=== PATIENT | female | born 1995 | race Two or more races ===

== ENCOUNTER 2018-07-02 08:38 | Outpatient (CLI) | payer OTHER | END 2018-07-02 08:46 | disposition home or self-care (01) | LOC: SONOGRAMA 08:38 | DX: E04.8 Other specified nontoxic goiter (principal) ==

== ENCOUNTER 2019-03-10 05:29 | Emergency (ER) | payer OTHER ==
[~2019-03-10] VITALS: Ht 175.3 cm; Wt 72.6 kg
[2019-03-10] MEDS ORDERED: CIPRO (05:42)
[2019-03-10] MEDS ORDERED: TRI-SPRINTEC T1 EACH (05:43)
[2019-03-10] MEDS ORDERED: FAMOTIDINE (05:43)
== END 2019-03-10 13:40 | disposition home or self-care (01) ==
LOC: ER 05:29
DX: N83.291 Other ovarian cyst, right side (principal)

== ENCOUNTER 2020-12-07 08:50 | Outpatient (CLI) | payer OTHER ==
[~2020-12-07 08:50] MED LIST: CIPRO; FAMOTIDINE; TRI-SPRINTEC T1 EACH
== END 2020-12-07 09:01 | disposition home or self-care (01) ==
LOC: SONOGRAMA 08:50
PROVIDERS: ATTEND Pathology Anatomic Pathology & Clinical Pathology
DX: E04.1 Nontoxic single thyroid nodule (principal)

== ENCOUNTER 2021-02-15 11:49 | Outpatient (CLI) | payer OTHER | END 2021-02-15 12:18 | disposition home or self-care (01) | LOC: SONOGRAMA 11:49 | PROVIDERS: ATTEND Pathology Anatomic Pathology & Clinical Pathology | DX: E04.2 Nontoxic multinodular goiter (principal) ==

== ENCOUNTER 2022-06-07 09:23 | Outpatient (CLI) | payer OTHER | END 2022-06-07 09:27 | disposition home or self-care (01) | LOC: SONOGRAMA 09:23 | PROVIDERS: ATTEND Pathology Anatomic Pathology & Clinical Pathology | DX: E04.1 Nontoxic single thyroid nodule (principal); D34 Benign neoplasm of thyroid gland ==

== ENCOUNTER 2023-10-23 12:23 | Outpatient (CLI) | payer OTHER | END 2023-10-23 12:25 | disposition home or self-care (01) | LOC: SONOGRAMA 12:23 | PROVIDERS: ATTEND Pathology Anatomic Pathology & Clinical Pathology | DX: D34 Benign neoplasm of thyroid gland (principal); E07.89 Other specified disorders of thyroid; E04.2 Nontoxic multinodular goiter ==